=== PATIENT | female | born 1945 | race African-American/Black ===

== ENCOUNTER 2017-06-16 15:50 | Emergency (ER) | payer OTHER ==
[~2017-06-16] VITALS: Ht 162.6 cm; Wt 75.3 kg
[~2017-06-16 15:50] MED LIST: AMARYL4 MG; AMLODIPINE BESY10 MG PO; ASA5UEC; BACTRIM DS TAB1 EACH PO; CARISOPRODOL 3350 MG PO; CARVEDILOL6.25 MG; CELEXA40 MG; CLIMARA TRANSDERM; COZAAR100 MG; DEXILANT60 MG PO; FUROSEMIDE 40 M40 M1; GLUCOPHAGE XR500 MG; JANUVIA50 MG; LIPITOR10 MG; NAPROSYN500 MG PO; NORCO 5-325 TA1 EACH PO; PAXIL40 MG PO; PERIACTIN PO; POTASSIUM20; TRAMADOL 50 MG50 MG PO
[2017-06-16 16:25] LABS: URINE BILIRUBIN NEGATIVE (Negative); URINE BLOOD NEGATIVE (Negative); URINE COLOR YELLOW; URINE GLUCOSE-RANDOM* NEGATIVE (Negative); URINE KETONES TRACE (Negative); URINE NITRITE NEGATIVE (Negative); URINE PROTEIN (DIPSTICK) 1+ (Negative)
[2017-06-16 16:33] LABS: ABSOLUTE NEUTROPHILS 8.6 thou/uL (1.4-8.2); EOSINOPHILS 3.5 % (0.0-3.0); HEMATOCRIT 40.6 % (37.0-47.0); HEMOGLOBIN 13.4 gm/dL (12.0-15.0); LYMPHOCYTES 18.3 % (24.0-44.0); MCH 28.7 pg (26.0-34.0); MCHC 32.9 g/dL (28.0-37.0); MCV 87.1 fL (80.0-100.0); MONOCYTES 6.1 % (1.0-8.0); PLATELET COUNT 354 thou/uL (150-400); POLYS 70.1 % (36.0-66.0); RBC 4.67 mil/uL (4.20-5.00); RDW 15.2 % (10.5-14.5); WBC 12.3 thou/uL (4.0-11.0)
[2017-06-16 16:34] LABS: MANUAL DIFF NO
[2017-06-16 16:37] LABS: BACTERIA None Seen /HPF (None Seen); CASTS None Seen /LPF (None Seen); CRYSTALS None Seen /LPF (None Seen); SQUAMOUS >10 Many /LPF (0-3); URINE RBC None Seen /HPF (0-2); URINE WBC 0-5 Rare /HPF (0-5)
[2017-06-16 16:40] LABS: CALCIUM 9.3 mg/dL (8.5-10.1); CREATININE 1.2 mg/dL (0.6-1.0); POTASSIUM 3.8 mmol/L (3.5-5.1)
[2017-06-16 16:47] LABS: ALBUMIN 4.4 g/dL (3.4-5.0); DIRECT BILIRUBIN 0.1 mg/dL (<0.1-0.3); TOTAL BILIRUBIN 0.6 mg/dL (<0.1-1.0); TOTAL PROTEIN 9.2 g/dL (6.4-8.2)
[2017-06-16 18:45] VITALS: BP 142/70
[2017-06-16] MEDS ORDERED: COLACE100 MG PO (19:14)
[2017-06-16] MEDS ORDERED: ASPIR 8181 M1 PO (19:31)
[2017-06-16] MEDS ORDERED: VITAMIN D1000 UNI1 PO (19:34)
[2017-06-16] MEDS ORDERED: VITAMIN C500 M1 PO (19:35)
[2017-06-16] MEDS ORDERED: CYPROHEPTADINE 44 MG PO (19:36)
== END 2017-06-16 19:15 | disposition home or self-care (01) ==
LOC: ER 15:50
PROVIDERS: Nurse Practitioner
DX: K59.00 Constipation, unspecified (principal); Z90.710 Acquired absence of both cervix and uterus; Z98.890 Other specified postprocedural states; Z88.0 Allergy status to penicillin; Z88.1 Allergy status to other antibiotic agents

== ENCOUNTER → 2019-06-10 | Outpatient (CLI) | payer OTHER ==
[~2019-06-10] VITALS: Ht 160 cm; Wt 77.5 kg
[~2019-06-10] MED LIST changes: +ASPIR 8181 M1 PO; +COLACE100 MG PO; +CYPROHEPTADINE 44 MG PO; +PAXIL10 MG PO; +VITAMIN C500 M1 PO; +VITAMIN D1000 UNI1 PO
[2019-06-10 09:27] VITALS: BP 122/67
--- NOTE | 2019-06-10 09:40 | NUR ---
Pain Clinic Assessment: 1. History of Osteoarthritis: Not Applicable History of Rheumatoid Arthritis: Not Applicable 2. Height: 5 ft. 3 in. 160.0 cm. Weight: 170.8 lb. oz. 77.474 kg. Patient's BMI: 30.3 3. Vital Signs: BP: 122/67 Pulse: 67 Resp: 16 Temp: 02 Sat: 99 ECG Mon: 4. Pain Intensity: 5 5. Fall Risk: Dizziness: N Needs help standing or walking: N Fallen in the last 3 months: N Fall risk comments: 6. Patient on Blood Thinner: None 7. History of Hypertension: Y 8. Opioid Therapy greater than 6 weeks: N Opiate Contract Signed: 9. Risk Assessment Tool Provided: LOW RISK 11/25 10. Functional Assessment Tool: 11. Recreational Drug Use: Never Drug Type: Tobacco Use: Never Smoker Tobacco Type: Amount or Packs/day: How Many Years: Alcohol Use: No Frequency: Quant:
--- NOTE | 2019-06-15 08:41 | HPC ---
[facility] [address] [place] [address] PAIN MANAGEMENT CONSULTATION Name: IVIS DE LA CRUZ Roxanna Room #: REG PRANAV PalafoxJameeBobJamee#: [id number] Admission: 06/10/19 ������������������ Attend Phys: Rivas Valadez MD Discharge: ������������������ Date of : 47 Report #: [id number] THIS REPORT FOR: //name// CC: Rivas Martinez DATE OF SERVICE: 06/10/2019 CHIEF COMPLAINT: Pain in the left leg. HISTORY OF PRESENT ILLNESS: The patient is a 74-year-old female who has been referred to the pain clinic for evaluation of leg pain. The patient states that she has been having more and more discomfort involving her left leg. After walking for some time, she notes some increased pain and heaviness. It involves the front portion of her leg and goes down into the thigh area. Notes that it improves when she rests. She describes it as continuous, steady, and aching, rates it as a 10/10 at its worse and 5/10 today. She denies any new bowel or bladder dysfunction. States that she had an MRI of her back and was told that there was some pressure on the nerves in her low back area. ALLERGIES: PENICILLIN, DEMEROL. CURRENT MEDICATIONS: Amlodipine 10 mg, Dexilant 60 mg, Paxil 20 mg, cyproheptadine 4 mg, aspirin 81 mg, and bran fiber tablets. PAST MEDICAL HISTORY: Chronic abdominal pain, hypertension, reflux, depression, anxiety, history of cervical radiculopathy without myelopathy, spondylolisthesis at C5-C6 with retropulsed disk at C5, hyperplastic polyp in 2011, atherosclerotic peripheral vascular disease, Raynaud's phenomenon, diverticulosis, and chronic urticaria. PAST SURGICAL HISTORY: Total abdominal hysterectomy and bilateral salpingo-oophorectomy due to fibroids, foot surgery x 2, anterior cervical fusion of C5, corpectomy with fusion of C4/C6, incisional hernia repair, and hysterectomy. SOCIAL HISTORY: She is retired. REVIEW OF SYSTEMS: Generally good health, fatigue, weakness, wears glasses, glaucoma/cataracts, shortness of breath when lying flat, nervousness, depression, and heat intolerance. LABORATORY DATA: MRI of lumbar spine dated 04/27/2019: 1. L1-L2, unremarkable. L2-L3 mild disk bulge with mild facet arthrosis. 2. L3-L4, mild disk bulge and mild facet arthrosis. Mild compression of the thecal sac. [address] [address] PAIN MANAGEMENT CONSULTATION Name: IVIS DE LA CRUZ Roxanna Room #: REG CLI [facility]#: [id number] Admission: 06/10/19 ������������������ Attend Phys: Rivas Valadez MD Discharge: ������������������ Date of : 47 Report #: [id number] 3. L3-L4, broad-based disk osteophyte bulge and mild facet arthrosis with mild compression of the thecal sac. 4. L5-S1 mild annular disk bulge and mild facet arthrosis. Impression, multilevel degenerative changes of lumbar spine. Mild central stenosis at L3-L4 and L4-L5 from disk bulge and facet arthrosis. PAIN CLINIC ASSESSMENT AND PQRS: 1. History of osteoarthritis. The patient is not being treated for osteoarthritis. She has not being treated for rheumatoid arthritis. 2. Height 5 feet 3 inches, weight 170 pounds, BMI is 30.0. 3. Vital signs: Blood pressure 122/67, pulse 67, respiratory rate 16, room air saturation 99%. 4. Pain intensity 5/10. 5. Fall history: The patient has not fallen in the last 3 months. 6. Blood thinner. The patient is not on a blood thinning medication. 7. Hypertension. The patient is being treated for hypertension. 8. Opiates greater than 6 weeks. The patient is not on a chronic opioid regimen. 9. Risk assessment tool, low for opioid use, 11/25. 10. Functional assessment tool . 11. Recreational drug use. The patient denies. 12. Tobacco: The patient never smoked. 13. Alcohol: The patient denies use of alcoholic beverages. PHYSICAL EXAMINATION: GENERAL: The patient is a well-developed, well-nourished black female, appears her stated age. She is alert and oriented x 3. Her affect is appropriate. Speech is fluent. HEENT: Normocephalic, atraumatic. Extraocular eye muscles intact. Sclerae nonicteric. Mucous membranes are moist. NECK: Without adenopathy. The patient has well-healed scar in her anterior neck. Has muscle strength in the upper extremities, judged to be 5-/5 for the left and the right side. HEART: Regular rate. ABDOMEN: Nontender. Bowel sounds present. CHEST: Generally clear to auscultation. MUSCULOSKELETAL: The patient without significant scoliosis, kyphosis, or lordosis. The patient has pain that is radiating down the anterior portion of her left leg. It is in the L3-L4 dermatomal distribution. Notes some weakness after prolonged standing and with activity. IMPRESSION: 1. Lumbar radiculopathy at the L3-L4 area. MRI showing mild central stenosis at L3-L4 and L4-L5. 2. Chronic abdominal pain. 3. Hypertension. [address] [address] PAIN MANAGEMENT CONSULTATION Name: IVIS DE LA CRUZ Room #: REG PRANAV William#: [id number] Admission: 06/10/19 ������������������ Attend Phys: Rivas Valadez MD Discharge: ������������������ Date of : 47 Report #: [id number] 4. Reflux. 5. Depression. 6. Anxiety. 7. History of cervical radiculopathy without myelopathy. 8. Spondylolisthesis at C5-C6 with retropulsed disk at C5. 9. Hyperplastic polyp in 2010. 10. Atherosclerotic peripheral vascular disease. 11. Raynaud's phenomenon. 12. Diverticulosis. 13. Chronic urticaria. RECOMMENDATIONS: We discussed treatment options with the patient. A model was used to indicate the area of probable pathology. We went over her MRI verbatim. With the use of a model, the patient states that she understands. We explained the risks and benefits of an epidural steroid injection. Possible complication of the procedure, which could include but are not limited to infection, worsening of pain, no improvement in pain, muscle soreness, bleeding, nerve damage with paralysis, spinal headache and the patient elects to proceed. PROCEDURE NOTE: The patient was taken to the procedure area. She was then assisted in getting on the examination table. Fluoroscopy was used to identify the appropriate area using anterior as well as lateral viewing. Her back was sterilely prepped at the L5-S1 area up to the L2-L3 area. At the L3-L4 area, 0.25% bupivacaine was infiltrated. A 25-gauge needle was used. A 17-gauge Tuohy using a midline approach at L3-L4 was undertaken. Aspiration was negative. A total of 80 mg Depo-Medrol, 40 mg triamcinolone and 2 mL of 0.25% bupivacaine was injected. The patient tolerated the procedure well. There were no complications. She remained in the Pain Clinic for an appropriate amount of time. A total of 12 seconds fluoroscopy time was used. The patient's pain was 0 at the time of discharge. She will follow up in the future as needed. We would like to thank you for letting us participate in her care. We hope she continues to improve. ��������������������������������������������� <ELECTRONICALLY SIGNED> ���������������������������������������� By: Rivas Valadez MD ��������������������������������������������� 06/15/19 [id number] [id number] Rivas Valadez MD /nt
== END | disposition home or self-care (01) ==
LOC: PAIN 08:49
DX: M47.26 Other spondylosis with radiculopathy, lumbar region (principal); M48.061 Spinal stenosis, lumbar region without neurogenic claudication; G89.29 Other chronic pain; I10 Essential (primary) hypertension; K21.9 Gastro-esophageal reflux disease without esophagitis; F32.9 Major depressive disorder, single episode, unspecified; F41.9 Anxiety disorder, unspecified; M43.12 Spondylolisthesis, cervical region; I70.209 Unspecified atherosclerosis of native arteries of extremities, unspecified extremity; I73.00 Raynaud's syndrome without gangrene; Z88.0 Allergy status to penicillin; Z88.8 Allergy status to other drugs, medicaments and biological substances; Z79.899 Other long term (current) drug therapy; Z79.82 Long term (current) use of aspirin; Z98.890 Other specified postprocedural states

== ENCOUNTER → 2019-12-02 | Outpatient (CLI) | payer OTHER ==
[~2019-12-02] VITALS: Ht 162.6 cm; Wt 76.4 kg
[2019-12-02 13:51] VITALS: BP 157/79
--- NOTE | 2019-12-02 14:11 | NUR ---
Pain Clinic Assessment: 1. History of Osteoarthritis: Not Applicable History of Rheumatoid Arthritis: Not Applicable 2. Height: 5 ft. 4 in. 162.6 cm. Weight: 168.4 lb. oz. 76.386 kg. Patient's BMI: 28.9 3. Vital Signs: BP: 157/79 Pulse: 77 Resp: 16 Temp: 02 Sat: 98 ECG Mon: 4. Pain Intensity: 5 5. Fall Risk: Dizziness: N Needs help standing or walking: N Fallen in the last 3 months: N Fall risk comments: 6. Patient on Blood Thinner: None 7. History of Hypertension: Y 8. Opioid Therapy greater than 6 weeks: N Opiate Contract Signed: 9. Risk Assessment Tool Provided: LOW RISK 11/25 10. Functional Assessment Tool: 11. Recreational Drug Use: Never Drug Type: Tobacco Use: Never Smoker Tobacco Type: Amount or Packs/day: How Many Years: Alcohol Use: No Frequency: Quant:
--- NOTE | 2019-12-14 16:47 | HPC ---
[facility] [address] [place] [address] PAIN MANAGEMENT CONSULTATION Name: IVIS DE LA CRUZ Roxanna Room #: REG PRANAV PalafoxJameeBobJamee#: [id number] Admission: 12/02/19 Attend Phys: Rivas Valadez MD Discharge: Date of : 47 Report #: [id number] THIS REPORT FOR: //name// CC: Rivas Martinez DATE OF SERVICE: 12/02/2019 CHIEF COMPLAINT: Pain in the low back area that goes down the front of both legs. HISTORY: The patient is a 74-year-old female who has been seen in the Pain Clinic because of lumbar radiculopathy. She has undergone epidural steroid injections and noticed some improvement in her pain. Over the last 3 weeks, she has noticed a worsening of her pain. She has not undergone any injury. Her is in [facility], he is having some problems with what sounds like per her report sepsis. States that his knees have been removed and these have been thought to be the source of his infection. She rates her pain today as a 5/10. Notes that the pain is worse when she is walking and standing. Notes the pain has been somewhat helped with rest as well as with her medications. She would like to proceed today with another epidural steroid injection. Had no complication from the last injection. ALLERGIES: PENICILLIN, DEMEROL. CURRENT MEDICATIONS: Amlodipine 10 mg, Dexilant 60 mg, Paxil 20 mg, cyproheptadine 4 mg, aspirin 81 mg, Bran Fiber tablets. PAIN CLINIC ASSESSMENT/PQRS: 1. History of osteoarthritis. The patient has some osteoarthritic changes in low back area. She is not being treated for rheumatoid arthritis. 2. Height 5 feet 4 inches, weight 168 pounds, BMI is 28.9. 3. Vital signs: Blood pressure 157/79, pulse 77, respiratory rate 16, room air saturation 98%. 4. Pain intensity, 5/10. 5. Fall history: The patient has not fallen in the last 3 months. 6. Blood thinner. The patient is not on a blood thinning medication. 7. Hypertension. The patient is being treated for hypertension. 8. Opioids greater than 6 weeks. The patient is not receiving opioid medications on a regular basis. 9. Risk assessment tool, low for opioid use. 10. Functional assessment tool, 41/. 11. Recreational drug use: The patient denies. 12. Tobacco: The patient has never smoked. 13. Alcohol. The patient denies frequent use of alcoholic beverages. [facility] [address] [place] [address] PAIN MANAGEMENT CONSULTATION Name: IVIS DE LA CRUZ Room #: REG CLTia Randle#: [id number] Admission: 12/02/19 Attend Phys: Rivas Valadez MD Discharge: Date of : 47 Report #: [id number] PHYSICAL EXAMINATION: GENERAL: The patient is a well-developed, well-nourished white female. Appears her stated age. She is alert and oriented x 3. Her affect is appropriate. Speech is fluent. HEENT: Normocephalic, atraumatic. Extraocular eye muscles intact. Sclerae nonicteric. Mucous membranes are moist. NECK: Without adenopathy. HEART: Regular rate. ABDOMEN: Nontender. CHEST: Generally clear to auscultation. MUSCULOSKELETAL: Without significant scoliosis, kyphosis or lordosis. The patient does have pain and discomfort, which radiated down the posterior portion of her leg and the L3-L4 dermatomal distribution. IMPRESSION: 1. Lumbar radiculopathy in the L3-L4 dermatomal distribution with MRI showing central stenosis at L3-L4 and L4-L5. 2. Chronic abdominal pain. 3. Hypertension. 4. Reflux. 5. Depression. 6. Anxiety. 7. History of cervical radiculopathy without myelopathy. 8. Spondylolisthesis of C5-C6 with retropulsed disk at C5. 9. Hyperplastic polyp in 2010. 10. Atherosclerotic peripheral vascular disease. 11. Raynaud's phenomenon. 12. Diverticulitis. 13. Chronic urticaria. RECOMMENDATIONS: We discussed treatment options with the patient. Risks and benefits of an epidural steroid injection were again reviewed. Possible complications of the procedure, which could include but are not limited to infection, worsening pain, no improvement in pain, nerve damage, spinal headache, bleeding and the patient elects to proceed. PROCEDURE NOTE: The patient was taken to the procedure area. She was then assisted in getting on the examination table. She was placed in the prone position. Her back was sterilely prepped with a Betadine solution at the L3-L4 interspace. Fluoroscopy using anterior, posterior as well as lateral viewing were implemented. Her back had been sterilely prepped with a Betadine solution. A 0.25% bupivacaine was infiltrated at the L3-L4 interspace. A 17-gauge Tuohy with loss of resistance technique was then used to gain access at the L3-L4 interspace. Aspiration was negative. A total of 80 mg Depo-Medrol, 40 mg triamcinolone and 2 mL of 0.25% bupivacaine was injected. The patient tolerated the procedure well. There were no complications. She remained in the Pain [address] [address] PAIN MANAGEMENT CONSULTATION Name: IVIS DE LA CRUZ Room #: REG PRANAV William#: [id number] Admission: 12/02/19 Attend Phys: Rivas Valadez MD Discharge: Date of : 47 Report #: [id number] Clinic for an appropriate amount of time. Hopefully, her will continue to improve. We would like to thank you for letting us participate in her care. We hope she continues to improve. <ELECTRONICALLY SIGNED> By: Rivas aVladez MD 12/14/19 [id number] Rivas Valadez MD /nt
== END | disposition home or self-care (01) ==
LOC: PAIN 06:56
DX: M54.16 Radiculopathy, lumbar region (principal); G89.29 Other chronic pain; R10.9 Unspecified abdominal pain; I10 Essential (primary) hypertension; F32.9 Major depressive disorder, single episode, unspecified; K21.9 Gastro-esophageal reflux disease without esophagitis; F41.9 Anxiety disorder, unspecified; Z98.890 Other specified postprocedural states; Z79.899 Other long term (current) drug therapy; Z87.19 Personal history of other diseases of the digestive system; Z88.0 Allergy status to penicillin; Z88.8 Allergy status to other drugs, medicaments and biological substances; Z79.82 Long term (current) use of aspirin

== ENCOUNTER → 2020-07-04 | Outpatient (CLI) | payer OTHER ==
[~2020-07-04] VITALS: Ht 162.6 cm; Wt 78.1 kg
[~2020-07-04] MED LIST changes: +AZOR 10-20 MG1 EACH PO
[2020-07-04 08:30] VITALS: BP 120/68
--- NOTE | 2020-07-04 08:51 | NUR ---
Pain Clinic Assessment: 1. History of Osteoarthritis: BACK History of Rheumatoid Arthritis: Not Applicable 2. Height: 5 ft. 4 in. 162.6 cm. Weight: 172.2 lb. oz. 78.109 kg. Patient's BMI: 29.5 3. Vital Signs: BP: 120/68 Pulse: 65 Resp: 14 Temp: 02 Sat: 98 ECG Mon: 4. Pain Intensity: 5 5. Fall Risk: Dizziness: N Needs help standing or walking: N Fallen in the last 3 months: N Fall risk comments: 6. Patient on Blood Thinner: None 7. History of Hypertension: Y 8. Opioid Therapy greater than 6 weeks: N Opiate Contract Signed: 9. Risk Assessment Tool Provided: LOW RISK 11/25 10. Functional Assessment Tool: 11. Recreational Drug Use: Never Drug Type: Tobacco Use: Never Smoker Tobacco Type: Amount or Packs/day: How Many Years: Alcohol Use: No Frequency: Quant:
== END | disposition home or self-care (01) ==
LOC: PAIN 06:52
PROVIDERS: ATTEND Anesthesiology Pain Medicine
DX: M54.16 Radiculopathy, lumbar region (principal); G89.29 Other chronic pain; M19.90 Unspecified osteoarthritis, unspecified site; Z98.890 Other specified postprocedural states; Z79.899 Other long term (current) drug therapy; Z88.0 Allergy status to penicillin

== ENCOUNTER → 2021-02-01 | Outpatient (CLI) | payer OTHER ==
[~2021-02-01] VITALS: Ht 162.6 cm; Wt 77.1 kg
[~2021-02-01] MED LIST changes: +MOBIC15 MG PO
[2021-02-01 09:07] VITALS: BP 125/66
--- NOTE | 2021-02-01 09:16 | NUR ---
Pain Clinic Assessment: 1. History of Osteoarthritis: BACK History of Rheumatoid Arthritis: Not Applicable 2. Height: 5 ft. 4 in. 162.6 cm. Weight: 170.0 lb. oz. 77.112 kg. Patient's BMI: 29.2 3. Vital Signs: BP: 125/66 Pulse: 78 Resp: 16 Temp: 02 Sat: 99 ECG Mon: 4. Pain Intensity: 5 5. Fall Risk: Dizziness: N Needs help standing or walking: N Fallen in the last 3 months: N Fall risk comments: 6. Patient on Blood Thinner: None 7. History of Hypertension: Y 8. Opioid Therapy greater than 6 weeks: N Opiate Contract Signed: 9. Risk Assessment Tool Provided: LOW RISK 11/25 10. Functional Assessment Tool: 11. Recreational Drug Use: Never Drug Type: Tobacco Use: Never Smoker Tobacco Type: Amount or Packs/day: How Many Years: Alcohol Use: No Frequency: Quant:
== END ==
LOC: PAIN 06:46
PROVIDERS: ATTEND Anesthesiology Pain Medicine
DX: M54.17 Radiculopathy, lumbosacral region (principal); R10.9 Unspecified abdominal pain; G89.29 Other chronic pain; I10 Essential (primary) hypertension; K21.9 Gastro-esophageal reflux disease without esophagitis; F41.9 Anxiety disorder, unspecified; K57.33 Diverticulitis of large intestine without perforation or abscess with bleeding; I73.00 Raynaud's syndrome without gangrene; L50.8 Other urticaria; I73.9 Peripheral vascular disease, unspecified; M43.12 Spondylolisthesis, cervical region; Z86.010 Personal history of colon polyps; Z87.39 Personal history of other diseases of the musculoskeletal system and connective tissue; Z88.8 Allergy status to other drugs, medicaments and biological substances; Z79.899 Other long term (current) drug therapy

== ENCOUNTER → 2021-03-15 | Outpatient (CLI) | payer OTHER ==
[~2021-03-15] VITALS: Ht 162.6 cm; Wt 80.7 kg
[2021-03-15 13:17] VITALS: BP 128/61
--- NOTE | 2021-03-15 13:18 | NUR ---
Pain Clinic Assessment: 1. History of Osteoarthritis: BACK History of Rheumatoid Arthritis: Not Applicable 2. Height: 5 ft. 4 in. 162.6 cm. Weight: 178.0 lb. oz. 80.740 kg. Patient's BMI: 30.5 3. Vital Signs: BP: 128/61 Pulse: 76 Resp: 14 Temp: 02 Sat: 100 ECG Mon: 4. Pain Intensity: 7 5. Fall Risk: Dizziness: N Needs help standing or walking: N Fallen in the last 3 months: N Fall risk comments: 6. Patient on Blood Thinner: None 7. History of Hypertension: Y 8. Opioid Therapy greater than 6 weeks: N Opiate Contract Signed: 9. Risk Assessment Tool Provided: LOW RISK 11/25 10. Functional Assessment Tool: 11. Recreational Drug Use: Never Drug Type: Tobacco Use: Former Smoker Tobacco Type: Amount or Packs/day: How Many Years: Alcohol Use: No Frequency: Quant:
== END | disposition home or self-care (01) ==
LOC: PAIN 03-13 08:10
PROVIDERS: ATTEND Anesthesiology Pain Medicine
DX: M54.16 Radiculopathy, lumbar region (principal); G89.29 Other chronic pain; I10 Essential (primary) hypertension; F32.9 Major depressive disorder, single episode, unspecified; F41.9 Anxiety disorder, unspecified; K21.9 Gastro-esophageal reflux disease without esophagitis; Z98.890 Other specified postprocedural states; Z79.899 Other long term (current) drug therapy; Z87.19 Personal history of other diseases of the digestive system

== ENCOUNTER → 2021-11-08 | Outpatient (CLI) | payer OTHER ==
[~2021-11-08] VITALS: Ht 162.6 cm; Wt 77.1 kg
[2021-11-08 09:36] VITALS: BP 143/65
--- NOTE | 2021-11-08 10:01 | NUR ---
Pain Clinic Assessment: 1. History of Osteoarthritis: BACK History of Rheumatoid Arthritis: Not Applicable 2. Height: 5 ft. 4 in. 162.6 cm. Weight: 170.0 lb. oz. 77.112 kg. Patient's BMI: 29.2 3. Vital Signs: BP: 143/65 Pulse: 67 Resp: 14 Temp: 02 Sat: 100 ECG Mon: 4. Pain Intensity: 10 WITH ACTIVITY 5 NOW 5. Fall Risk: Dizziness: N Needs help standing or walking: N Fallen in the last 3 months: N Fall risk comments: 6. Patient on Blood Thinner: None 7. History of Hypertension: Y 8. Opioid Therapy greater than 6 weeks: N Opiate Contract Signed: 9. Risk Assessment Tool Provided: LOW RISK 11/25 10. Functional Assessment Tool: 11. Recreational Drug Use: Never Drug Type: Tobacco Use: Former Smoker Tobacco Type: Amount or Packs/day: How Many Years: Alcohol Use: No Frequency: Quant:
== END | disposition home or self-care (01) ==
LOC: PAIN 10-25 06:53
PROVIDERS: ATTEND Anesthesiology Pain Medicine
DX: M54.16 Radiculopathy, lumbar region (principal); G89.29 Other chronic pain; I10 Essential (primary) hypertension; F32.9 Major depressive disorder, single episode, unspecified; F41.9 Anxiety disorder, unspecified; K21.9 Gastro-esophageal reflux disease without esophagitis; L50.8 Other urticaria; R10.9 Unspecified abdominal pain; Z98.890 Other specified postprocedural states; Z79.899 Other long term (current) drug therapy; Z87.19 Personal history of other diseases of the digestive system; Z86.010 Personal history of colon polyps